=== PATIENT | female | born 1955 | race Caucasian/White ===

== ENCOUNTER → 2018-01-15 | Outpatient (CLI) | payer OTHER ==
[~2018-01-15] MED LIST: ASPIR 8181 MG PO; CELEXA20 MG PO; FELDENE20 MG PO; NORVASC 5 MG TAB5 MG PO; PROBIOTIC1 EAC1 PO
== END ==
LOC: RAD 10:44
DX: M17.11 Unilateral primary osteoarthritis, right knee (principal); M25.761 Osteophyte, right knee

== ENCOUNTER → 2019-03-20 | Outpatient (CLI) | payer OTHER ==
[~2019-03-20] VITALS: Ht 160 cm; Wt 124.7 kg
[~2019-03-20] MED LIST changes: +MELATONIN5 M1 PO; +MOBIC15 MG PO; +TRAZODONE HCL50 MG PO; +ZANTAC 150MG T150 MG PO; +ZOCOR20 MG PO
[2019-03-20 08:33] LABS: HEMATOCRIT 41.9 % (37.0-47.0); HEMOGLOBIN 13.9 gm/dL (12.0-15.0); MCH 27.4 pg (26.0-34.0); MCHC 33.2 g/dL (28.0-37.0); MCV 82.4 fL (80.0-100.0); RBC 5.08 mil/uL (4.20-5.00); RDW 15.2 % (10.5-14.5); WBC 6.9 thou/uL (4.0-11.0)
[2019-03-20 08:37] VITALS: BP 188/62
[2019-03-20 08:41] LABS: CALCIUM 9.3 mg/dL (8.5-10.1); CREATININE 0.8 mg/dL (0.6-1.0); POTASSIUM 3.6 mmol/L (3.5-5.1)
--- NOTE | 2019-03-20 12:56 | CATHLAB ---
[facility] [address] [place] [address] INVASIVE PROCEDURE REPORT Name: MARILYN HARRIS Room #: REG Basilio#: [id number] ������������� Admission: 03/20/19 ������������� Attend Phys: Jimmie Root Discharge: ��� ������������� ��� Date of : 55 Date of Service: 03/20/19 1255 �� Report #: [id number] �������� ��������������������������������������������[id number] THIS REPORT FOR: //name// APPROVED REPORT Study performed: 03/20/2019 09:00:32 Patient Details Patient Status: Out-Patient Room #: The patient is a 63 year-old female Event Personnel Jimmie Long Weights And Measures Sealer, Randolph Parra RN, Mary Pitts ScrubDuyen Nancy RTR, IRON POURER, Jose J Delaney Michelle RN title camera operator Performed Art Access - R femoral artery* Left Heart Cath w/or w/o Coronaries [id number] [facility] [address] Initial Mod Sed Same Phys/QHP Gr5y [id number] Hemostasis with Manual pressure, supervision of conscious sedation Indication Positive stress test, Chest pain Procedure Narrative The Right Groin^ was infiltrated with 1% Lidocaine subcutaneous anesthesia. A PINNACLE 4FR Sheath #[id number] sheath was inserted into the RFA^. Coronary angiography was performed using coronary diagnostic catheters. The right coronary system was accessed and visualized with a JR4 catheter. The left coronary system was accessed and visualized with a JL4 catheter. The left ventricle was accessed and visualized with a JR$ catheter. Left ventricular/Aortic Valve gradient assessed via catheter pullback. Hemostasis was obtained with manual pressure following sheath removal without any complications. The patient tolerated the procedure well and there were no complications associated with the procedure. There was no hematoma. Intraoperative Conscious Sedation Sedation start time: 10:20 Case end Time: 10:45 Versed 2 mg Fluoro Time: 3.39 minutes [facility] [place] [address] INVASIVE PROCEDURE REPORT Name: MARILYN HARRIS Room #: REG [facility]#: [id number] ������������� Admission: 03/20/19 ������������� Attend Phys: Jimmie Root Discharge: ��� ������������� ��� Date of : 55 Date of Service: 03/20/19 1255 �� Report #: [id number] �������� ��������������������������������������������[id number] Dose: DAP 7096.40 cGycm2 1020 mGy Contrast Type and Amount: Omnipaque 50 ml Coronary Angiography The patient's coronary anatomy is right dominant. Diagnostic Cath Left Main Essentially nonexistent. The LAD and the circumflex arising from the aortic cusp LAD Moderate caliber type I vessel coursing along the anterior interventricular sulcus quite tortuous in its course but free of significant high-grade lesions. Visualization is somewhat limited but review of all of the images demonstrates no high-grade lesions noted as the vessel tapers distally and gives rise to septal and diagonal branches Diagonal 1 Small-caliber nonobstructive vessel Circumflex Large-caliber vessel courses in the atrioventricular sulcus to the lateral aspect of the left ventricle where it trifurcates into 3 marginal branches the distal being the smallest. The proximal to our moderate in size tortuous in course and free of high-grade disease of the proceed towards the apex. The circumflex proper fitting shoes small postero-vessel. OM1 Moderate to large trifurcating vessel with out significant high-grade lesions Right Coronary Large-caliber vessel of normal origin coursing in the AV groove to the acute margin regular to small marginal branch. Then continues on to the crux of the heart regular some moderate to large caliber posterior descending artery and then the RCA proper terminates as a posterior wall branches no significant stenotic lesions are noted no irregularities of the lumen are present R PDA Moderate to large caliber vessel coursing towards the apex free of high-grade disease Left Ventriculography Left Ventriculography was not performed. Hemodynamics The aortic pressure is 221/86 mmHg with a mean of 140 mmHg. The left ventricular pressure is 215/19 mmHg with a mean of mmHg. The left ventricular end diastolic pressure is 31 mmHg. Conclusion 1. Essentially normal coronary arteries 2. Abnormal hemodynamics with elevated liver ventricular end-diastolic pressures [facility] [address] [place] [address] INVASIVE PROCEDURE REPORT Name: MARILYN HARRIS DAHIANA Room #: REG CL Basilio#: [id number] ������������� Admission: 03/20/19 ������������� Attend Phys: Jimmie Root Discharge: ��� ������������� ��� Date of : 55 Date of Service: 03/20/19 1255 �� Report #: [id number] �������� ��������������������������������������������[id number] 3. Coronary vessels tortuous in their course suggestive of hypertensive heart disease Recommendations Cardiac Risk Reduction Program Medical Therapy ��������������������������������������������� <ELECTRONICALLY SIGNED> ���������������������������������������� By: Jimmie Long MD ��������������������������������������������� 03/20/19 1255 1255 125 Jimmie Long MD /INF
--- NOTE | 2019-03-20 16:13 | EKG ---
[address] [address] ELECTROCARDIOGRAM REPORT Name: HARRISMARILYN TALBOT Room #: [facility] [id number] ������������������ Admission: 03/20/19 ������������������ Attend Phys: Jimmie Long Discharge: ������������������ Date of : 55 Report #: [id number] ����������������������������������������������������������������� [id number] THIS REPORT FOR: //name// [facility] Test Date: 2019-03-20 Test Time: 08:26:40 Pat Name: MARILYN HARRIS Department: Room: Gender: F People Manager: ZENON : 1955 Requested By: Jimmie Long Order Number: [id number] MD: Zheng Izaguirre Measurements Intervals [place] Rate: 63 P: 13 OK: 193 QRS: 45 QRSD: 142 T: -49 QT: 479 QTc: 491 Interpretive Statements Sinus rhythm Right bundle branch block Compared to ECG 07/13/2016 08:00:57 T-wave abnormality no longer present Electronically Signed On 03-20-2019 16:12:52 CDT by Zheng Izaguirre [email or web address] ��������������������������������������������� <ELECTRONICALLY SIGNED> ���������������������������������������� By: Zheng Izaguirre MD ��������������������������������������������� 03/20/19 1612 5 5 Zheng Izaguirre MD /FRANCESCA
== END | disposition home or self-care (01) ==
LOC: CATH 07:53
PROVIDERS: Internal Medicine
DX: I11.0 Hypertensive heart disease with heart failure (principal); I50.1 Left ventricular failure, unspecified; G47.33 Obstructive sleep apnea (adult) (pediatric); E78.5 Hyperlipidemia, unspecified; E66.09 Other obesity due to excess calories; K21.9 Gastro-esophageal reflux disease without esophagitis; Z88.0 Allergy status to penicillin; Z88.2 Allergy status to sulfonamides; Z88.8 Allergy status to other drugs, medicaments and biological substances; Z98.890 Other specified postprocedural states; Z79.899 Other long term (current) drug therapy

== ENCOUNTER → 2019-08-07 | Outpatient (CLI) | payer OTHER | LOC: ULTRA 09:41 | DX: R22.32 Localized swelling, mass and lump, left upper limb (principal) ==

== ENCOUNTER → 2020-10-06 | Outpatient (CLI) | payer OTHER | LOC: SJCVCIMAG 09:35 | PROVIDERS: ATTEND Internal Medicine | DX: I08.2 Rheumatic disorders of both aortic and tricuspid valves (principal); R00.1 Bradycardia, unspecified ==

== ENCOUNTER → 2021-10-07 | Outpatient (CLI) | payer OTHER | LOC: SJCVC 09:06 | PROVIDERS: ATTEND Internal Medicine | DX: R94.31 Abnormal electrocardiogram [ECG] [EKG] (principal); I49.1 Atrial premature depolarization; I45.10 Unspecified right bundle-branch block; I35.0 Nonrheumatic aortic (valve) stenosis; I10 Essential (primary) hypertension; E78.00 Pure hypercholesterolemia, unspecified; G47.33 Obstructive sleep apnea (adult) (pediatric); J45.909 Unspecified asthma, uncomplicated; E11.9 Type 2 diabetes mellitus without complications; E78.5 Hyperlipidemia, unspecified; Z88.1 Allergy status to other antibiotic agents; Z88.0 Allergy status to penicillin; Z88.2 Allergy status to sulfonamides; Z88.8 Allergy status to other drugs, medicaments and biological substances; Z79.899 Other long term (current) drug therapy; Z72.89 Other problems related to lifestyle ==

== ENCOUNTER → 2021-10-19 | Outpatient (CLI) | payer OTHER | LOC: SJCVCIMAG 08:42 | PROVIDERS: ATTEND Internal Medicine | DX: I08.8 Other rheumatic multiple valve diseases (principal) ==